=== PATIENT | male | born 1970 | race Caucasian/White ===

== ENCOUNTER 2017-10-02 17:11 | Inpatient (IN) | payer MEDICARE, MEDICAID ==
[~2017-10-02] VITALS: Ht 182.9 cm; Wt 127.0 kg
[~2017-10-02 17:11] MED LIST: ASPIRIN325 PO; CIPRO500 MG PO; FLAGYL500 MG PO; FLOMAX PO; GLUCOPHAGE500 MG PO; HYDROCODONE-AP1 EAC6 PO; METHOTREXATE 22.5 MG IM; NORVASC5 MG PO; PERCOCET 10-321 EACH PO; ZOFRAN ODT4 MG SUBLING
[2017-10-02 17:37] VITALS: BP 187/114
[2017-10-02 18:49] LABS: URINE BILIRUBIN NEGATIVE (Negative); URINE BLOOD 3+ (Negative); URINE CLARITY CLEAR; URINE COLOR YELLOW; URINE GLUCOSE-RANDOM NEGATIVE (Negative); URINE KETONES NEGATIVE (Negative); URINE LEUKOCYTES-REFLEX NEGATIVE (Negative); URINE NITRITE-REFLEX NEGATIVE (Negative); URINE PROTEIN TRACE (Negative); URINE SPECIFIC GRAVITY >= 1.030 (1.005-1.030); URINE UROBILINOGEN 0.2 E.U./dl (0.2-1.0)
[2017-10-02 18:58] LABS: HYALINE CASTS 0-3 Few /LPF (None Seen); MUCUS 4-6 Moderate strn/LPF (None Seen)
[2017-10-02 18:59] LABS: BACTERIA-REFLEX 1-9 Few /HPF (None Seen); CRYSTALS None Seen /LPF (None Seen); SQUAMOUS 0-3 Few /LPF (0-3); URINE RBC >20 Many /HPF (0-2); URINE WBC-REFLEX 0-5 Rare /HPF (0-5)
[2017-10-02 19:09] LABS: ABSOLUTE BASOPHILS 0.1 thou/uL (0.0-0.2); ABSOLUTE EOSINOPHILS 0.1 thou/uL (0.0-0.7); ABSOLUTE LYMPHOCYTES 1.6 thou/uL (0.8-5.3); ABSOLUTE MONOCYTES 0.6 thou/uL (0.0-1.2); ABSOLUTE NEUTROPHILS 12.5 thou/uL (1.6-8.1); BASOPHILS 0.8 %; EOSINOPHILS 0.4 %; HEMATOCRIT 45.5 % (42.0-52.0); HEMOGLOBIN 15.5 gm/dL (14.0-18.0); LYMPHOCYTES 10.7 %; MCH 31.1 pg (26.0-34.0); MCV 91.3 fL (80.0-100.0); MONOCYTES 4.2 %; MPV 8.2 fl. (7.2-11.1); NUCLEATED RBCS 0 /100WBC; PLATELET COUNT* 236 thou/uL (150-400); POLYS 83.9 %; RBC 4.99 mil/uL (4.50-6.00); RDW-CV 14.5 % (10.5-14.5); WBC 14.8 thou/uL (4.0-11.0)
[2017-10-02 19:15] LABS: CALCIUM 9.1 mg/dL (8.5-10.1); POTASSIUM 3.8 mmol/L (3.5-5.1)
[2017-10-02 19:20] LABS: ALBUMIN 4.2 g/dL (3.4-5.0); TOTAL BILIRUBIN 0.7 mg/dL (<0.1-1.0); TOTAL PROTEIN 7.8 g/dL (6.4-8.2)
[2017-10-02 22:09] VITALS: BP 144/93
--- NOTE | 2017-10-02 22:15 | NUR ---
PT ADMITTED TO FLOOR PER CART ACCOMPANIED BY ER STAFF AND FAMILY WITH BELONGINGS. ORIENTED TO ROOM AND CALL LITE. HISTORY OBTAINED AND ASSESSMENT PERFORMED, SEE ADMIT NOTES. PT CO LABD AND L FLANK PAIN 01/14-STATES THIS IS MUCH IMPROVED AND DENIES NEED FOR PAIN MED AT THIS TIME. DENIES NAUSEA AT THIS TIME, REQUESTING SPRITE. VOIDED PER URINAL ON ARRIVAL TO FLOOR, STRAINED AND MEASURED-PT INSTRUCTED ON NEED TO STRAIN URINE AND AGREES TO NOTIFY STAFF WHEN HE USES URINAL. MADE COMFORTABLE IN RECLINER AT BEDSIDE. WILL CONTINUE TO MONITOR AND PROVIDE CARES NEEDED. CALL LITE IN EASY REACH.
[2017-10-02 22:20] VITALS: BP 142/87
--- NOTE | 2017-10-03 06:24 | NUR ---
NEW ADMISSION THIS SHIFT. AOX4, PLEASANT AND COOPERATIVE. SLEEPING AT BEDSIDE OVERNIGHT. USING URINAL TO VOID AND NOTIFYING STAFF TO STRAIN AND EMPTY URINAL, NO STONES SEEN. NO LABS THIS MORNING. HAS BEEN NPO SINCE MIDNIGHT, UROLOGY CONSULT TODAY. LFA IVF INFUSING PER PUMP, MORPHINE AND ZOFRAN GIVEN X1 WITH GOOD RESULT. ABLE TO USE CALL LITE AND MAKE NEEDS KNOWN.
[2017-10-03 08:00] VITALS: BP 120/79
--- NOTE | 2017-10-03 12:40 | NUR ---
MET WITH PT AND TO DISCUSS HOME SITUATION/DC PLANNING. PT LIVES WITH AND DTR. HE IS INDEPENDENT AND ACTIVE. USES NO EQUIPMENT OR HOME CARE. HE FOLLOWS WITH DR MATSON FOR PCP. PT TO HAVE POSSIBLE PROCEDURE TOMORROW. DENIES ANY DC NEEDS. WILL FOLLOW
--- NOTE | 2017-10-03 15:22 | EKG ---
[place] [address] ELECTROCARDIOGRAM REPORT Name: JEFFERSON KLINE Room: [address] ADM IN M.R.#: [id number] Admission: 10/02/17 Attend Phys: Tiffanie Miller MD Discharge: Date of : 70 Report #: [id number] THIS REPORT FOR: //name// [facility] Test Date: 2017-10-03 Test Time: 08:51:25 Pat Name: JEFFERSON MGMACARENABHASKAR Department: Room: [address] Gender: M Build Engineer: : 1970 Requested By: Coy Baker Order Number: [id number] Reading MD: Alex Mcgowan Measurements Intervals Swan Rate: 75 P: 15 [place]: 157 QRS: 29 QRSD: 95 T: 49 QT: 376 QTc: 420 Interpretive Statements Sinus rhythm Abnormal R-wave progression, early transition No previous ECG available for comparison Electronically Signed On 10-03-2017 15:22:00 ACOUSTICAL INSTALLER by Alex Mcgowan [email or web address] <ELECTRONICALLY SIGNED> By: Alex Mcgowan MD, [facility] 10/03/17 1522 0851 Alex Mcgowan MD, [facility] /EPI
[2017-10-03 16:00] VITALS: BP 142/84
--- NOTE | 2017-10-03 16:38 | NUR ---
PATIENT HAS BEEN A/O X 4 THIS SHIFT. MEDICATED FOR LEFT FLANK PAIN X 1 THIS AM WITH IV PAIN MEDS WITH GOOD RELIEF. PATIENT'S IV FLUIDS INFUSING ORDERED. UP AD PAZ IN ROOM. VOIDING PER URINAL, URINE STRAINED, NO STONE SEEN. TOLERATING DIET. TO BE NPO AFTER MIDNIGHT FOR SURGERY. HOURLY ROUNDING COMPLETED. CALL LIGHT WITHIN REACH. WILL CONTINUE WITH PLAN OF CARE.
[2017-10-03 20:00] VITALS: BP 141/89
--- NOTE | 2017-10-03 23:00 | NUR ---
ASSUMED CARE OF PT FROM [facility]. PT DENIES NEEDS AT PRESENT, DENIES PAIN OR NAUSEA. AWARE OF NPO AFTER MIDNIGHT FOR UROLOGY PROCEDURE TOMORROW. AT BEDSIDE. AOX4, USING URINAL AT BEDSIDE, URINE STRAINED. IVF INFUSING PER PUMP. ABLE TO USE CALL LITE AND MAKE NEEDS KNOWN. WILL CONTINUE TO MONITOR AND PROVIDE CARES NEEDED.
[2017-10-04 02:53] VITALS: BP 141/89
--- NOTE | 2017-10-04 06:10 | NUR ---
PT SLEPT WELL. AT BEDSIDE. USING URINAL TO VOID AT BEDSIDE, STRAINED BY STAFF. LAC IVF INFUSING PER PUMP. TO HAVE KUB TODAY, POSSIBLE CYSTOSCOPY/STENT PLACE/STONE INTERVENTION. HAS BEEN NPO SINCE MIDNIGHT FOR POSSIBLE PROCEDURES. DENIED NEED FOR PAIN OR NAUSEA MED. ABLE TO USE CALL LITE AND MAKE NEEDS KNOWN.
[2017-10-04 08:00] VITALS: BP 126/82
[2017-10-04 08:28] LABS: HEMATOCRIT 42.1 % (42.0-52.0); HEMOGLOBIN 14.4 gm/dL (14.0-18.0); MCH 31.2 pg (26.0-34.0); MCHC 34.2 g/dL (28.0-37.0); MPV 8.3 fl. (7.2-11.1); RBC 4.63 mil/uL (4.50-6.00); RDW-CV 14.2 % (10.5-14.5); WBC 8.3 thou/uL (4.0-11.0)
[2017-10-04 08:38] LABS: CALCIUM 8.5 mg/dL (8.5-10.1); CREATININE 0.8 mg/dL (0.6-1.3)
[2017-10-04 12:35] VITALS: BP 152/108
[2017-10-04 12:45] VITALS: BP 167/106
[2017-10-04 14:30] VITALS: BP 169/69
--- NOTE | 2017-10-04 14:39 | OP ---
[address] [address] OPERATIVE REPORT Name: JEFFERSON KLINE Room: [address] IN .#: [id number] Admission: 10/02/17 Attend Phys: Tiffanie Miller MD Discharge: Date of : 70 Report #: [id number] THIS REPORT FOR: //name// CC: [facility] Carole Miller DATE OF SERVICE: 10/04/2017 PREOPERATIVE DIAGNOSIS: Left proximal ureteral stone. POSTOPERATIVE DIAGNOSIS: Left proximal ureteral stone. PROCEDURES: Cystourethroscopy, left retrograde pyelogram, left ureteral stent placement (6 Slovak x 28 cm). SURGEON: Josefa Titus MD ANESTHESIA: General. ESTIMATED BLOOD LOSS: None. COMPLICATIONS: None. SPECIMENS: None. INDICATIONS FOR PROCEDURE: The patient is a 47-year-old male who presented with a 4 x 7 mm proximal left ureteral obstructing stone. He has failed to pass this and options were discussed. He elects to proceed with intervention. Risks of procedure were discussed including but not limited to infection, bleeding, injury to the urethra, bladder, ureter, need for secondary procedures, stent pain, cardiopulmonary complications. He also understands the stent is not a permanent structure and must be removed in a timely fashion. He voices understanding and wished to proceed. DESCRIPTION OF PROCEDURE: After informed consent was obtained, the patient was taken back to the operating room and placed supine. After induction of general anesthesia, he was placed in dorsal lithotomy position, genitalia prepped and draped in standard fashion. Rigid cystoscopy was performed. Urethra was normal. Prostate was nonobstructing. Bladder was inspected and normal. There were no tumors or lesions. Ureteral orifices were orthotopic in position. Retrograde was performed on the left with cone tip catheter. This revealed a very narrow delicate ureter to the level of the proximal ureter where at that point, he had a jet of contrast. It was difficult to see a true filling defect, but this is the location of the stone on his current CT scan. He had some mild hydronephrosis behind this. A sensor wire was threaded [place] [address] OPERATIVE REPORT Name: JEFFERSON KLINE Room: [address] IN [facility].#: [id number] Admission: 10/02/17 Attend Phys: Tiffanie Miller MD Discharge: Date of : 70 Report #: [id number] Bladder was drained, scope was removed. Using a dual lumen catheter, a second wire was placed. The UO was quite tight and I was not able to advance the dual lumen catheter very far. I attempted to thread a 06/19 ureteral access sheath over one of the wires, but this was way too tight and would not thread past the level of the UO to avoid any damage. I elected to just place a stent to let him passively dilate and then will come back in a week to address the stone once he is dilated safely with the stent. The second wire was removed leaving the sensor wire in place. The wire was backloaded through the cystoscope and I measured for stent. He appeared to need a 28 cm. Therefore, a 6-Slovak x 28 cm stent was inserted over the wire. Curl was seen within the upper pole and good curl was seen within the bladder. The bladder was then drained and scope was removed. A 5 mL of lidocaine jelly were placed per urethra for local anesthesia. He was awoken, extubated and taken to recovery in satisfactory condition. He will be dismissed home and can follow up in about a week or two for ureteroscopy once he is dilated with the stent. <ELECTRONICALLY SIGNED> By: Josefa Titus MD 10/04/17 1439 1351 1429Josefa Titus MD /nt
[2017-10-04] MEDS ORDERED: PHENAZOPYRIDIN200 M2 PO (14:57)
[2017-10-04 14:58] VITALS: BP 167/106
[2017-10-04] MEDS ORDERED: LEVSIN-SL0.125 MG PO (14:58)
--- NOTE | 2017-10-04 16:03 | NUR ---
PATIENT HAD RETROGRAM AND CYSTO THIS AFTERNOON. OK TO DC HOME PER UROLOGY. PATIENT VOIDING BLOODY URINE, STENT IN PLACE. DR. MILAN NOTIFIED OF ELEVATED BP, PATIENT TO CONTINUE HOME BP MED AT HOME TODAY. VERBALIZES UNDERSTANDING OF PAPERWORK AND SCRIPT. PATIENT GIVEN ITEMS TO STRAIN URINE AT HOME. IV DC'D. PATIENT AMBULATED OUT WITH FAMILY AND ALL BELONGINGS.
== END 2017-10-04 16:06 | disposition home or self-care (01) | DRG 694 ==
LOC: M.ERS 17:11 → M.TBA-ER 20:44 → M.3W 20:44
PROVIDERS: Nurse Practitioner Family; Physician Assistant; ADMIT Internal Medicine
PROC: BT1F1ZZ Fluoroscopy of Left Kidney, Ureter and Bladder using Low Osmolar Contrast (ICD-10-PCS; principal; 2017-10-04)
PROC: 0T778DZ Dilation of Left Ureter with Intraluminal Device, Via Natural or Artificial Opening Endoscopic (ICD-10-PCS; principal; 2017-10-04)
DX: N13.2 Hydronephrosis with renal and ureteral calculous obstruction (principal); R65.10 Systemic inflammatory response syndrome (SIRS) of non-infectious origin without acute organ dysfunction; I10 Essential (primary) hypertension; E78.00 Pure hypercholesterolemia, unspecified; E88.81 Metabolic syndrome and other insulin resistance; M19.90 Unspecified osteoarthritis, unspecified site; F17.210 Nicotine dependence, cigarettes, uncomplicated; E78.5 Hyperlipidemia, unspecified; Z87.442 Personal history of urinary calculi; Z79.899 Other long term (current) drug therapy; Z79.82 Long term (current) use of aspirin

== ENCOUNTER → 2017-10-11 | Day surgery (SDC) | payer MEDICAID, MEDICARE ==
[~2017-10-11] MED LIST changes: +LEVSIN-SL0.125 MG PO; +PHENAZOPYRIDIN200 M2 PO
--- NOTE | 2017-10-12 17:16 | OP ---
[address] [address] OPERATIVE REPORT Name: JEFFERSON KLINE Room: [facility]#: [id number] Admission: 10/11/17 Attend Phys: Josefa Titus, Discharge: Date of : 70 Report #: [id number] THIS REPORT FOR: //name// CC: [facility] Carole Titus DATE OF SERVICE: 10/11/2017 PREOPERATIVE DIAGNOSIS: Left proximal ureteral stone. POSTOPERATIVE DIAGNOSIS: Left proximal ureteral stone. PROCEDURE: Cystourethroscopy, left retrograde pyelogram, left ureteroscopy, laser lithotripsy, basket extraction of stone and left ureteral stent exchange (6-Maldivian x 26 cm). SURGEON: Josefa Titus MD ANESTHESIA: General. ESTIMATED BLOOD LOSS: None. COMPLICATIONS: None. SPECIMEN: Stone. INDICATION FOR PROCEDURE: The patient is a 47-year-old male who underwent stent on the left side for a proximal obstructing stone about a week ago. I was unable to reach the stone and therefore he was just stented at that time. He now presents for definitive stone management. Risks of procedure were discussed including but not limited to infection, bleeding, injury to the urethra, bladder, ureters, need for secondary procedures, stent pain, cardiopulmonary complications. He voiced understanding and wished to proceed. DESCRIPTION OF PROCEDURE: After informed consent was obtained, the patient was taken to the operating suite and placed supine. After induction of general anesthesia, he was placed in dorsal lithotomy position, genitalia prepped and draped in standard fashion. Rigid cystoscopy was performed. Urethra and prostate were normal and there was no obstruction. Bladder was inspected and normal. The stent was seen protruding from the left UO. This was grasped and externalized at the meatus. A sensor wire was threaded up through the stent and the stent was removed. Using a rigid ureteroscope, this was advanced alongside the wire into the distal ureter to make sure there are no stone fragments dropping into the distal ureter before placing a sheath. This was clear. The rigid ureteroscope was backed out after placing a second wire. The 06/19 [place] [address] OPERATIVE REPORT Name: JEFFERSON KLINE Room: [facility]#: [id number] Admission: 10/11/17 Attend Phys: Josefa Titus, Discharge: Date of : 70 Report #: [id number] ureteral access sheath was inserted over one of the wires to the level of the mid ureter. Due to some tightness, it would not pass any further and I just left in the mid ureter to be safe. Flexible ureteroscope was advanced up into the proximal ureter. The stone had been pushed back into the kidney from the previous stent. The stone was found in one of the lower pole calices. This was lasered with a 200 micron holmium laser fiber and the pieces were basketed. Anything remaining was very small and should be passable. There is also another renal stone that was adherent to the dipti which was able to be knocked off and this was basketed and removed. This was probably about 2 mm. He was also noted to have stone beneath the mucosa in one of the calices as well, but I left that alone as it had not protruded through the mucosa yet. All calices were inspected. There were no remaining larger stone fragments. The scope was backed out along with the sheath. There was no injury from the sheath. The dual lumen catheter was used to thread over the wire and retrograde was performed. This delineated the collecting system for stent placement. There was no hydro. The wire was backloaded through the cystoscope and a 6-Maldivian x 26-cm double-J stent was threaded over the wire. Good curl was seen in the renal pelvis and good curl was seen within the bladder. The bladder was then drained. The scope was removed. The procedure was concluded. A 5 mL of lidocaine jelly were placed per urethra for local anesthesia. He was awoken, extubated and taken to recovery in satisfactory condition. He will be discharged home and follow up with me in a week or two for stent removal. <ELECTRONICALLY SIGNED> By: Josefa Titus MD 10/12/17 1716 1405 1434Josefa Titus MD /nt
== END | disposition home or self-care (01) ==
LOC: M.SUR 09:58
DX: N20.1 Calculus of ureter (principal); Z79.899 Other long term (current) drug therapy; Z79.82 Long term (current) use of aspirin; Z79.891 Long term (current) use of opiate analgesic

== ENCOUNTER 2019-05-08 20:08 | Emergency (ER) | payer MEDICAID ==
[~2019-05-08] VITALS: Ht 182.9 cm; Wt 120.7 kg
[2019-05-08] MEDS ORDERED: ENBREL50 MG/1 M1 SUBQ (20:53)
[2019-05-08] MEDS ORDERED: ALLOPURINOL 10100 M1 PO (20:53)
[2019-05-08] MEDS ORDERED: JANUMET 50-1,01 EACH PO (20:54)
[2019-05-08] MEDS ORDERED: ZOCOR20 MG PO (20:54)
[2019-05-08] MEDS ORDERED: HYZAAR 50-12.51 EACH PO (20:54)
[2019-05-08] MEDS ORDERED: NEURONTIN 300M300 M2 PO (20:54)
[2019-05-08] MEDS ORDERED: HYDROCODON-ACE1 EAC8 PO (20:55)
[2019-05-08] MEDS ORDERED: ERYTHROMYCIN E3.5 G3 OPHTHALMIC ×3 (21:32→21:41)
[2019-05-08 21:48] VITALS: BP 133/94
== END 2019-05-08 21:50 | disposition home or self-care (01) ==
LOC: M.ERS 20:08
DX: S05.02XA Injury of conjunctiva and corneal abrasion without foreign body, left eye, initial encounter (principal); I10 Essential (primary) hypertension; E78.00 Pure hypercholesterolemia, unspecified; M19.90 Unspecified osteoarthritis, unspecified site; F17.200 Nicotine dependence, unspecified, uncomplicated; X58.XXXA Exposure to other specified factors, initial encounter; Y92.89 Other specified places as the place of occurrence of the external cause; Y93.89 Activity, other specified; Y99.8 Other external cause status